=== PATIENT | male | born 1995 | race Caucasian/White ===

== ENCOUNTER 2016-11-11 09:11 | Emergency (ER) | payer OTHER ==
[~2016-11-11] VITALS: Ht 167.6 cm; Wt 66.5 kg
[2016-11-11 09:19] VITALS: BP 91/58; PULSE 84; RESP 16; TEMP 97.5; O2SAT 97
--- NOTE | 2016-11-11 09:49 | RADHPO ---
EXAM DATE/TIME: 11/11/2016 09:35 [facility] COMPARISON: No previous studies available for comparison. INDICATIONS : Right ankle pain after falling. MEDICAL HISTORY : None. SURGICAL HISTORY : None. ENCOUNTER: Initial ACUITY: 1 day PAIN SCORE: 10/10 LOCATION: Right Ankle FINDINGS: There is soft tissue swelling at the medial aspect of the ankle and a transverse fracture through the medial malleolus, with lateral displacement of the distal fracture fragment and widening of the ankl e mortise. Normal bone density. CONCLUSION: Distal tibia fracture with interruption of the ankle mortise and soft tissue swelling. Kodak Magallanes MD on November 11, 2016 at 9:47 Board Certified Radiologist. This report was verified electronically.
[2016-11-11] MEDS ORDERED: PERC5TAB12 PO (10:02)
--- NOTE | 2016-11-11 10:03 | PD ---
HPI . Right ankle injury Chief Complaint: Injury Time Seen by Provider: 09:26 Travel History International Travel<30 days: No Contact w/Intl Traveler<30days: No Traveled to known affect area: No History of Present Illness HPI Patient presents with an acute right ankle injury. He states that he jumped from a trampoline to try to dunk a basketball and this landed. Right ankle collapsed under him. He was unable to walk following the injury. His friends placed in Jonathan wrap and brought into the hospital. He describes this pain as sharp and severe. He denies any associated injuries. He can move his toes. [facility] Past Medical History Medical History: Denies Significant Hx Past Surgical History Surgical History: No Previous Surgery Social History Alcohol Use: No Tobacco Use: No Allergies-Medications (Allergen,Severity, Reaction): Coded Allergies: No Known Allergies (Unverified , 11/11/16) Reported Meds & Prescriptions Reported Meds & Active Scripts Active No Active Prescriptions or Reported Medications Review of Systems Except as stated in HPI: all other systems reviewed are Neg Musculoskeletal: Positive: Arthralgias Skin: Positive Other (no associated laceration or abrasion) Physical Exam Narrative GENERAL: Awake and alert and in no acute distress. SKIN: Warm and dry. CARDIOVASCULAR: Regular rate and rhythm. RESPIRATORY: No accessory muscle use. MUSCULOSKELETAL: No obvious deformities. He does have some swelling in the right ankle particularly over the medial malleolus. He is point tender over the medial malleolus. The ankle is stable but he has tremendous pain to the medial aspect of the right ankle when the ankle is stressed. He is distally neurovascularly intact. NEUROLOGICAL: Awake and alert. No obvious cranial nerve deficits. Motor grossly within normal limits. Normal speech. PSYCHIATRIC: Appropriate mood and affect; insight and judgment normal. Data Data Last Documented VS Vital Signs Date Time Temp Pulse Resp B/P Pulse Ox O2 Delivery O2 Flow Rate FiO2 11/11/16 09:19 97.5 84 16 91/58 97 Orders Ankle, Complete ([id number]) (11/11/16 09:26) [facility] Medical Decision Making Medical Screen Exam Complete: Yes Emergency Medical Condition: Yes Differential Diagnosis Differential diagnosis of extremity trauma includes but is not limited to fracture, sprain or strain, dislocation, contusion Narrative Course Patient presents for evaluation of acute right ankle injury. He is tender over the medial malleolus. Last Impressions Ankle X-Ray 11/11/16 0926 Signed Impressions: Service Date/Time: Friday, November 11, 2016 09:35 - CONCLUSION: Distal tibia fracture with interruption of the ankle mortise and soft tissue swelling. Kodak Magallanes MD The x-ray was independently viewed by me. The patient will be placed in a Rivas splint and referred urgently to orthopedics. Diagnosis Primary Impression: Closed right ankle fracture Qualified Code: S82.891A - Closed right ankle fracture, initial encounter Referrals: Gera Muñoz Jr., MD Patient Instructions: Ankle Fracture (DC), General Instructions, Narcotic given in the ED Med/Other Pt SpecificInfo: Prescription(s) given Scripts Oxycodone-Acetaminophen (Percocet)5-325 mg Tab1-2 Tab PO Q4H PRN (PAIN) #12 TAB Ref 0 Prov:Radha Meyer MD 11/11/16 Disposition: 01 DISCHARGE HOME Condition: Stable Radha Meyer MD Nov 11, 2016 10:03
[2016-11-11] MEDS ORDERED: oxyCODONE/ACETAMINOPHEN 10 MG/325 MG TAB PO ONE (10:15)
== END 2016-11-11 10:40 | disposition home or self-care (01) ==
LOC: PHEFT 09:11
DX: S82.391A Other fracture of lower end of right tibia, initial encounter for closed fracture (principal); Y93.39 Activity, other involving climbing, rappelling and jumping off; Y93.44 Activity, trampolining; Y92.9 Unspecified place or not applicable; Y99.9 Unspecified external cause status
CPT/HCPCS: 29515; 73610; 99283; E0113

== ENCOUNTER → 2016-11-18 | Outpatient (CLI) | payer OTHER ==
[~2016-11-18] MED LIST: PERC5TAB12 PO
[2016-11-18 12:26] LABS: BLOOD, URINE NEG (NEG); COMMENT (UR) CULT NOT INDICATED; CULTURE IF INDICATED CULT NOT INDICATED; GLUCOSE,URINE NEG (NEG); KETONE, URINE NEG (NEG); MUCUS URINE FEW /lpf (OCC); NITRITE,URINE NEG (NEG); URINE COLOR YELLOW (YELLW/STRAW)
[2016-11-18 12:41] LABS: BICARBONATE 29.4 MEQ/L (21.0-32.0); POTASSIUM 3.9 MEQ/L (3.5-5.1)
== END ==
LOC: CPRE 10:30
PROVIDERS: ATTEND Orthopaedic Surgery
DX: Z01.812 Encounter for preprocedural laboratory examination (principal); S82.53XD Displaced fracture of medial malleolus of unspecified tibia, subsequent encounter for closed fracture with routine healing; X58.XXXD Exposure to other specified factors, subsequent encounter
CPT/HCPCS: 36415; 80048; 81001

== ENCOUNTER → 2016-11-20 | Day surgery (SDC) | payer OTHER ==
--- NOTE | 2016-11-18 09:03 | MH ---
cc: ADELA BUNCH DATE OF ADMISSION: 11/20/2016 ADMITTING DIAGNOSIS: He is scheduled to be admitted to the hospital on 20 November 2016, his admitting diagnosis is a displaced medial malleolar fracture of the right ankle, pain right ankle, fall while jumping on a trampoline. HISTORY: The patient is a 21 year-old white male who sustained an injury of his right ankle on the 11 of November of this year while he was jumping of a trampoline in an attempt to dunk a basketball and he fell sustaining a stress injury to the ankle area. He experienced immediate onset of pain for which he was seen thereafter in the emergency room of [facility] where x-ray examination identified a distal tibial fracture with interruption of the ankle mortis and soft tissue swelling. The patient was placed into splint immobilization and was seen thereafter by a local orthopedic surgeon who apparently recommended that the patient consider operative intervention because his insurance coverage the patient was later seen by the undersigned physician for a second opinion evaluation at which time x-ray studies confirmed the presence of a displaced medial malleolar fracture about the right ankle area. Findings and treatment options were reviewed at that time. The pros, cons of continuing with conservative management versus operative intervention involving open reduction, internal fixation were discussed. Recommendation was made for operative treatment for which the patient agreed to same and currently is being admitted in order that the above be accomplished. PAST MEDICAL HISTORY/HOSPITALIZATIONS/SURGERIES: Include; Dental extraction. The patient denies active medical illnesses. MEDICATIONS He takes no prescribed medications other than currently utilizing Percocet for pain management. ALLERGIES THERE ARE NO INDICATED DRUG ALLERGIES. REVIEW OF SYSTEMS No headache, seizure, syncope. No sinus congestion or epistaxis. Auditory acuity intact, no tinnitus, no bleeding gums or dysphagia. Denies cough, shortness of breath, upper respiratory infection, pneumonia or tuberculosis. No anginal heart disease. His appetite is good, bowel movements regular. No hepatitis, gallbladder disease or ulcers. There is a positive history of hemorrhoids. No urinary tract infection, no kidney stones, no prior history of fractures. No psychiatric illness. His remaining review of systems is unremarkable and noncontributory. FAMILY HISTORY: The patient is single. Both parents are alive and well. He has a sister and brother both indicated to be in good health. The family history is otherwise noncontributory. SOCIAL HISTORY: The patient completed a high school education. He is currently serving in the . He denies active use of tobacco and ethanol. PHYSICAL EXAMINATION: VITAL SIGNS: Height 5'7". Weight 150 pounds. IN GENERAL: An alert and oriented and responsive 21 year-old white male who sits quietly upon the examination table with mild discomfort as related to right ankle pain. HEAD, EYES, EARS, NOSE, AND THROAT: Pupils equal, round, reactive to light and accommodation. Extraocular movements full. Sclera are clear. External nares are clear. External auditory canal is clear. Dental intact. Mucous membranes are pink and moist, pharynx clear. NECK: The neck is supple, active range of motion without significant pain, carotid pulses palpable bilaterally, trachea midline, thyroid without enlargement. LUNGS: The lungs are clear to auscultation, percussion, no costovertebral angle tenderness, no discomfort throughout the dorsal lumbar spine. HEART: The heart has regular rhythm, no murmur or gallop. ABDOMEN: The abdomen is soft, nontender, bowel sounds present. RECTUM: Rectal per primary care physician. EXTREMITIES: Right ankle, there is tenderness generalized about the ankle region, especially overlying the medial malleolus, without palpable deformity. No significant swelling or discoloration. Limited mobility involving both dorsi and plantar flexion of the ankle joint with pains at the extremes of motion, no sensation of crepitation, instability, active toe motions, sensory is grossly intact. Dorsalis pedis pulse palpable. NEUROLOGIC: Cranial nerves II through XII grossly intact. IMPRESSION: Displaced medial malleolar fracture, right ankle, pain right ankle, fall while jumping on trampoline. PLAN: Surgical stabilization by way of open reduction, internal fixation, medial malleolar fracture, right ankle. The nature of the planned surgical procedure, the potential complications and risks associated, the expectations of surgery and the consent form were thoroughly reviewed with the patient prior to his admission to the hospital. Klever has indicated his full understanding regarding all of the above and given consent to proceed with treatment as outlined. MD JENNA Hassan/darron /4:50 PM /9:03 AM
[~2016-11-20] VITALS: Ht 170.2 cm; Wt 68.0 kg
[~2016-11-20] MED LIST changes: +*morphine SULFATE 8 MG/ML PERIprocedure ONLY ONE; +ACETAMINOPHEN/HYDROcodone 325 MG/5 MG TAB PO PRN; +CHLORHEXIDINE GLUCONATE 2 % 1 PACK (2 CLOTHS) TOPICAL PRN; +FAMOTIDINE 20 MG/2 ML VIAL ONE; +INSULIN HUMAN REGULAR 1,000 UNITS/10 ML VIAL SQ PRN; +KETOROLAC TROMETHAMINE 60 MG/2 ML (IM) VIAL IM ONE; +LACTATED RINGER'S 1000 ML IV PRN; +METOPROLOL TARTRATE 25 MG TAB PO PRN; +MIDAZOLAM HCL 2 MG/2 ML VIAL ONE; +MORPHINE SULFATE 10 MG/ML INJ IM PRN; +ONDANSETRON HCL 4 MG/2 ML VIAL IV PUSH ONE; +POVIDONE IODINE 5% (ANTISEPSIS KIT) 4 APPLICATIONS EACH NARE PRN; +POVIDONE IODINE 7.5% SCRUB 118 ML BOTTLE TOPICAL SCH; +PROPOFOL 200 MG/20 ML AMP IV ONE; +SODIUM CHLORID 0.9% 500 ML IV PRN; +ceFAZolin 2 GM PREMIX 50 ML IV SCH; +fentaNYL CITRATE 250 MCG/5 ML AMP ONE
[2016-11-20 08:26] VITALS: BP 120/69; PULSE 77; RESP 16; TEMP 99.5; O2SAT 100
--- NOTE | 2016-11-20 11:47 | RADRPT ---
EXAM DATE/TIME: 11/20/2016 10:55 [facility] COMPARISON: ANKLE RIGHT COMPLETE ([id number]), November 11, 2016, 9:35. INDICATIONS : ORIF right medial malleolus fracture. MEDICAL HISTORY : None. SURGICAL HISTORY : None. ENCOUNTER: Initial ACUITY: 1 day PAIN SCORE: Non-responsive. LOCATION: Right ankle. FINDINGS: 3 images are recorded digitally in the operating room using C-arm during placement of an orthopedic s crew across the medial malleolar fracture. CONCLUSION: Intraoperative images. Rashaad Alarcon MD on November 20, 2016 at 11:44 Board Certified Radiologist. This report was verified electronically.
[2016-11-20 13:29] VITALS: BP 128/67; PULSE 80; RESP 18; TEMP 97; O2SAT 98
--- NOTE | 2016-11-21 22:12 | MP ---
cc: ADELA BOLAND DATE OF SURGERY 11/20/16 PREOPERATIVE DIAGNOSIS Displaced medial malleolar fracture of the right ankle POSTOPERATIVE DIAGNOSIS Displaced medial malleolar fracture of the right ankle PROCEDURE Open reduction internal fixation with medial malleolar screw. SURGEON Nalini Boland MD ANESTHESIA General by LMA PROCEDURE IN DETAIL Following induction of satisfactory general anesthesia by LMA insertion as completed per Department of Anesthesia tourniquet was established around the proximal portion of the right lower extremity. The extremity proper was prepped with Betadine solution and draped into a sterile field in the routine manner. Prior to initiation of the actual procedure, the standard time-out protocol was completed, all parameters were appropriately addressed and confirmed by operating room personnel. The extremity was elevated for approximately 1 minute and the tourniquet thus inflated to 250 mmHg pressure. A sharp skin incision of a limited nature was initiated over the prominence of the medial malleolus and developed through underlying subcutaneous tissue with hemostasis maintained by electrocautery. By deepening dissection, the underlying medial malleolar structure was identified. Manipulation of the fracture site was accomplished and monitored under image intensifying review. A guide pin was passed through the tip of the medial malleolus and traversed proximally into the substance of the distal tibia. Appropriate orientation as well as alignment about the fracture site was appreciated. Thereafter. a 40 mm 4.0 long thread cannulated screw was passed over the guidewire affixing the fracture site in near anatomic alignment. The guidewire was removed. Final image intensifying review confirmed appropriate alignment about the fracture site, ankle mortis being intact and good positioning of the fixation screw itself. The wound was copiously irrigated with saline solution. Hemostasis maintained by electrocautery. The subcutaneous tissue was reapproximated with interrupted 3-0 Vicryl suture. Skin margins with Steri-Strips. Tourniquet deflated after 22 minutes of tourniquet time. A sugar-tong splint applied. The patient transferred to the recovery room in satisfactory condition having tolerated his operative procedure well. Estimated blood loss was less than 10 mL. MD JENNA Hassan/ /11:19 AM /9:55 PM
== END | disposition home or self-care (01) ==
LOC: HSDC 05:49
PROVIDERS: ATTEND Orthopaedic Surgery
DX: S82.51XA Displaced fracture of medial malleolus of right tibia, initial encounter for closed fracture (principal); W19.XXXA Unspecified fall, initial encounter; Y93.44 Activity, trampolining
CPT/HCPCS: 01480; 27814; 73610; 76000; C1713; J0690; J1885; J2250; J2270; J2405; J3010; J7120